=== PATIENT | female | born 1965 | race Caucasian/White ===

== ENCOUNTER → 2023-04-18 11:32 | Outpatient (REF) | payer OTHER, SELFPAY | LOC: MRI 3T 11:32 | PROVIDERS: ATTENDING PHYSICIAN Surgery; FAMILY PHYSICIAN Family Medicine | DX: R92.2 Inconclusive mammogram (principal); Z80.3 Family history of malignant neoplasm of breast | CPT/HCPCS: 77049; A9585 ==

== ENCOUNTER 2023-08-31 15:04 | Emergency (ER) | payer OTHER, SELFPAY ==
[2023-08-31 15:08] VITALS: BP 139/98
[2023-08-31] MEDS: AFRIN NASAL SPRAY 2 SPRAYS NASAL (15:46)
--- NOTE | 2023-08-31 16:06 | ED.GENMED ---
History of Present Illness
General
Chief Complaint: Nose Bleed
Source: patient
Time Seen by Provider: 08/31/23 15:30
History of Present Illness
History of Present Illness:
58-year-old female with past medical history of hypercholesterolemia and GERD presenting to the emergency department for evaluation of nontraumatic right nare epistaxis that began approximately 1 hour prior to arrival. Patient states that she has
been attempting localized pressure for about 45 minutes with symptoms slowing that she was still having large clot formation prompting her to come to the ER for further evaluation. Patient denies any history of similar. She is also denying any
history of known bleeding or clotting disorders or any complications.
Past History
Past History
ED Past Medical History: GERD (Pepcid AC BID), Hypercholesterolemia (Atorvastatin), Other (migraines) and Other (Estrogen creme intravaginal)
ED Past Surgical History: Appendectomy, , Gynecological (2010 L Hernia repair) and Other (Rectocele repair 12/2019)
Social History
Tobacco: Non-smoker
Alcohol: Occasional
Drug: None
Personal:
Living: with family
Employment: Employed (self employed)
Review of Systems
Review of Systems
All Other Systems: ROS reviewed and negative except as documented in HPI and ROS
Phy Exam
Physical Exam
Physical Exam:
GENERAL: Alert , in no apparent distress
EYE: conjunctiva clear
Head: Normocephalic atraumatic
NECK: Supple,
ENT: mmm. Small scab to the right anterior nare along the septum. No septal hematoma. No active bleeding. No oropharyngeal bleeding
LUNGS: no acute respiratory distress
NEUROLOGICAL: Alert and oriented
SKIN: Warm and dry, skin intact.
MUSCULOSKELETAL: well perfused.
PSYCH: Normal and appropriate interaction.
Scores
Heart Failure Risk
Heart Failure Risk Score: Not Applicable
Heart Score for Chest Pain Patients
STEMI patient?: Not applicable
Withdrawal Assessment of Alcohol
Withdrawal Assessment Completed?: Not applicable
Course
Orders/Labs/Results
Orders:
Orders
08/31/23 15:36
Oxymetazoline HCl [Afrin Nasal [place]] See Dose Instructions NASAL NOW STA
Vital Signs
Initial and Last Documented VS:
Initial Vital Signs
Temp Pulse Resp BP Pulse Ox
98.3 F 93 20 139/98 97
08/31/23 15:08 08/31/23 15:08 08/31/23 15:08 08/31/23 15:08 08/31/23 15:08
Last Documented Vital Signs
Temp Pulse Resp BP Pulse Ox
98.3 F 93 20 139/98 97
08/31/23 15:08 08/31/23 15:08 08/31/23 15:08 08/31/23 15:08 08/31/23 15:08
MDM/Problems Addressed
MDM/Problems Addressed:
58-year-old female presenting to the emergency department for evaluation of atraumatic right nare epistaxis that began prior to arrival. Symptoms are mostly resolved at this time. There does not seem to be any active bleeding. Will instill 2
sprays of Afrin to the affected nare and continue holding light pressure for continued hemostasis. As long as patient remains asymptomatic and symptoms improved I do feel it be reasonable for her to be discharged home and outpatient management.
Discussed using saline nasal spray to help continue with nasal passages moisture. Stable for discharge home pending reevaluation.
*Pulse Oximetry
Patient hypoxic: no
*Critical Care Note
Total Time (30-74mins, 75-104mins- exclusive of procedures): Not Applicable
Patient Management
Escalation/DeEscalation of care consider admission/obs:
On reevaluation patient's epistaxis is fully resolved. She is stable for discharge home and aware of return precautions to the ER.
ED Attending Note
-
Portions of this chart may have been created with voice recognition software.� Occasional wrong word or��sound alike� substitutions may have occurred due to the inherent limitations of voice recognition software.
Discharge Plan
Departure
Patient Disposition: Home (Routine Discharge)
Date of Disposition: 08/31/23
Time of Disposition: 16:15
Patient with high blood pressure during this ER visit?: Yes
Discharge Problem:
Epistaxis
Instructions: Nosebleeds (DC)
Prescriptions:
No Action
acetaminophen-caffeine 1 EACH tablet
2 ea PO PRN PRN (Reason: migraines)
sumatriptan succinate 50 MG tablet
50 mg PO PRN PRN (Reason: migraines)
famotidine [Pepcid AC] 10 MG tablet,chewable
10 mg PO BID
atorvastatin 10 MG tablet
20 mg PO DAILY
ubrogepant [Ubrelvy] 50 MG tablet
100 mg PO PRN PRN (Reason: migraines)
cetirizine 10 MG tablet
10 mg PO DAILY PRN (Reason: allergies)
cholecalciferol (vitamin D3) 2,000 UNITS tablet
2,000 units PO DAILY
galcanezumab-gnlm [Emgality Syringe] 120 MG/ML syringe
120 mg SQ .MONTHLY
ascorbic acid (vitamin C) [Vitamin C] 500 MG tablet
500 mg PO .OCCASSIONALLY
estradiol 1 APPLIC cream
1 applic vaginal .ONCE A WEEK
magnesium 200 MG tablet
400 mg PO .OCCASSIONALLY
multivitamin with folic acid [Tab-A-[place]] 1 TABLET tablet
1 tab PO DAILY
Referrals:
Citlaly Wall MD [Family Provider] -
Interventions
Interventions:
*Risk Screen - Suicide Last Done: 08/31/23 15:08
*General Assessment Last Done: 08/31/23 15:08
*Neglect/Abuse Screening Last Done: 08/31/23 15:08
*Nursing Disposition Last Done: 08/31/23 16:21
ED-EENT Assessment Last Done: 08/31/23 15:24
Discharge Date and Time
Discharge Date/Time: 08/31/23 16:22
Print Language: [id number]
== END 2023-08-31 16:22 | disposition home or self-care (01) ==
LOC: EMR 15:04
PROVIDERS: EMERGENCY PHYSICIAN Emergency Medicine; FAMILY PHYSICIAN Family Medicine
DX: R04.0 Epistaxis (principal); R03.0 Elevated blood-pressure reading, without diagnosis of hypertension; E78.00 Pure hypercholesterolemia, unspecified; K21.9 Gastro-esophageal reflux disease without esophagitis; G43.909 Migraine, unspecified, not intractable, without status migrainosus; Z88.0 Allergy status to penicillin; Z91.048 Other nonmedicinal substance allergy status
CPT/HCPCS: 99282